=== PATIENT | female | born 1940 | race Caucasian/White ===

== ENCOUNTER → 2016-05-20 | Outpatient (REF) | payer BC | END | disposition home or self-care (01) | LOC: M LAB REF 16:29 | PROVIDERS: ATTEND Physician Assistant Medical | DX: J02.9 Acute pharyngitis, unspecified (principal) ==

== ENCOUNTER → 2017-03-10 | Outpatient (CLI) | payer BC ==
--- NOTE | 2017-03-10 10:17 | REP ---
Clinical: Follow up pulmonary nodules. History of COPD/emphysema. Comparison: 03/17/2015, 03/09/2016. Findings: Moderate emphysematous changes and biapical scarring along with small scattered noncalcified nodules remains stable. Few areas of consolidation noted on 03/17/2015 have resolved. Mild bronchiectasis is unchanged. No focal consolidation, significant nodule or mass lesion. No pleural effusion/reaction or pneumothorax. No acute adenopathy. Atherosclerotic changes to the thoracic aorta and coronary arteries appreciated without cardiomegaly. The ascending thoracic aorta measures 3.8 cm maximal diameter. Surrounding musculoskeletal structures are normal. Upper abdomen demonstrates stable left adrenal adenoma. Impression: 1. Stable bilateral pleuroparenchymal changes including few scattered nodules. Changes are stable compared to 03/17/2015. 2. Mild aneurysmal dilatation to the ascending thoracic aorta measuring 3.8 cm maximal diameter. 3. No new mediastinal or pleuroparenchymal process appreciated. Signed by Bipin Diane MD 03/10/2017 10:09 A
== END ==
LOC: M RAD 09:21
PROVIDERS: ATTEND Internal Medicine Pulmonary Disease
DX: J43.9 Emphysema, unspecified (principal)

== ENCOUNTER → 2020-08-07 | Outpatient (CLI) | payer BC ==
--- NOTE | 2020-08-07 11:13 | REP ---
INDICATION: NICOTINE DEPENDENCE. COMPARISON: Multiple latest 03/10/2017 standard helical technique without contrast TECHNIQUE: Axial noncontrast images from the thoracic inlet to the upper abdomen using low-dose lung screening technique (LDCT). As per the protocol only lung window images were sent to the read station for interpretation. FINDINGS: Once again, there is heavy biapical pleuroparenchymal scarring which appears stable. Once again, there are scattered stable appearing pulmonary nodules. There is no evidence of a definite new abnormal nodule, mass, or opacity. Grossly, there is no significant change in appearance of the mediastinum or pulmonary cari. Grossly, there is no evidence of significant change in the appearance of the imaged upper abdomen or imaged osseous structures. IMPRESSION: Stable appearing chronic changes as described above. Lung rads category 2 <Electronically signed by James Friend > 08/07/20 [id number]
== END ==
LOC: M RAD 09:48
PROVIDERS: ATTEND Internal Medicine Pulmonary Disease
DX: Z12.2 Encounter for screening for malignant neoplasm of respiratory organs (principal); F17.218 Nicotine dependence, cigarettes, with other nicotine-induced disorders

== ENCOUNTER → 2021-08-19 | Outpatient (CLI) | payer BC | LOC: M RAD 11:14 | PROVIDERS: ATTEND Internal Medicine Pulmonary Disease | DX: Z12.2 Encounter for screening for malignant neoplasm of respiratory organs (principal); F17.218 Nicotine dependence, cigarettes, with other nicotine-induced disorders; R91.8 Other nonspecific abnormal finding of lung field ==

== ENCOUNTER → 2023-04-17 | Outpatient (CLI) | payer BC | LOC: M RAD 12:43 | PROVIDERS: ATTEND Internal Medicine Pulmonary Disease | DX: F17.218 Nicotine dependence, cigarettes, with other nicotine-induced disorders (principal) ==

== ENCOUNTER → 2024-10-18 | Outpatient (CLI) | payer MEDICARE, SELFPAY | LOC: M RAD 10:03 | DX: Z53.9 Procedure and treatment not carried out, unspecified reason (principal) ==

== ENCOUNTER → 2024-11-08 | Outpatient (CLI) | payer MEDICARE, BC | LOC: M RAD 11:47 | PROVIDERS: ATTEND Internal Medicine Pulmonary Disease | DX: J43.1 Panlobular emphysema (principal) ==

== ENCOUNTER → 2024-12-04 | Outpatient (CLI) | payer MEDICARE, BC | LOC: M RAD 08:25 | PROVIDERS: ATTEND Internal Medicine Pulmonary Disease | DX: R91.8 Other nonspecific abnormal finding of lung field (principal); J43.9 Emphysema, unspecified ==